=== PATIENT | male | born 1985 | race Caucasian/White ===

== ENCOUNTER 2021-11-01 01:16 | Outpatient (CLI) | payer OTHER, SELFPAY ==
[2021-11-01 10:37] LABS: Abs Immature Grans 0.01 10^3/uL (0.0-0.06); Absolute Basophil Count 0.02 10^3/uL (0.0-0.2); Absolute Lymphocyte Count 1.42 10^3/uL (1.2-3.4); Absolute Monocyte Count 0.46 10^3/uL (0.1-0.8); Absolute Neutrophil Count 2.37 10^3/uL (1.2-6.7); Basophils % 0.4; Eosinophils % 4.5; HCT 39.4 % (40.0-50.0); HGB 13.1 g/dL (13.5-17.5); Immature Grans % 0.2; Lymphocytes % 31.7; MCH 28.1 pg (27.0-33.0); MCHC 33.2 % (32.0-36.0); MCV 84 fL (80-95); MPV 9.7 fL (8.0-11.0); Monocytes % 10.3; Neutrophils % 52.9; Platelet Count 269 10^3/uL (130-400); RBC 4.67 10^6/uL (4.36-5.78); RDW 12.5 % (11.8-14.1); RDW-SD 38.5 fL; WBC 4.48 10^3/uL (4.4-10.8)
[2021-11-01 11:44] LABS: ALT 48 U/L (16-63); AST 26 U/L (15-37); Albumin 4.2 g/dL (3.4-5.0); Alkaline Phosphatase 112 U/L (46-116); BUN 14 mg/dL (7-18); CREATININE 1.2 mg/dL (0.70-1.30); Chloride 104 mmol/L (98-107); Glucose 89 mg/dL (74-106); Potassium 4.4 mmol/L (3.5-5.1); Sodium 142 mmol/L (136-145); Total Protein 7.5 g/dL (6.4-8.2)
[2021-11-02 15:38] LABS: HCV RNA Qualitative Undetected (Undetected)
== END 2021-11-01 01:17 | disposition home or self-care (01) ==
DX: Z00.00 Encounter for general adult medical examination without abnormal findings (principal)
CPT/HCPCS: 36415; 80053; 87522; 85025